=== PATIENT | female | born 1955 | race Caucasian/White ===

== ENCOUNTER → 2021-07-30 | Outpatient (CLI) | payer MEDICARE ==
--- NOTE | 2021-07-30 15:06 | US ---
EXAMINATION TYPE: US carotid duplex BILAT DATE OF EXAM: 07/30/2021 COMPARISON: NONE CLINICAL HISTORY: I65.23 OCCLUSION AND STENOSIS OF BILATERAL. dizziness EXAM MEASUREMENTS: RIGHT: Peak Systolic Velocity (PSV) cm/sec ----- Right CCA: 107 ----- Right ICA: 114 ----- Right ECA: 147 ICA/CCA ratio: 1.07 RIGHT: End Diastole cm/sec ----- Right CCA: 26.5 ----- Right ICA: 34.0 ----- Right ECA: 18.4 LEFT: Peak Systolic Velocity (PSV) cm/sec ----- Left CCA: 126 ----- Left ICA: 130 ----- Left ECA: 165 ICA/CCA ratio: 1.03 LEFT: End Diastole cm/sec ----- Left CCA: 29.9 ----- Left ICA: 46.9 ----- Left ECA: 18.9 VERTEBRALS (direction of flow): Right Vertebral: Antegrade Left Vertebral: Antegrade Rhythm: Normal mild plaque bilateral bifurcations. slightly increased velocities bilateral ECA's IMPRESSION: No evidence for hemodynamically significant stenosis. Criteria for Assigning % of Stenosis / Diameter reduction (Estimation based on the indirect measurements of the internal carotid artery velocities (ICA PSV). 1. Normal (no stenosis)=ICA PSV < 125 cm/s: ratio < 2.0: ICA EDV<40 cm/s. 2. Less than 50% stenosis=ICA PSV < 125 cm/s: ratio < 2.0: ICA EDV<40 cm/s. 3. 50 to 69% stenosis=ICA PSV of 125 to 230 cm/s: ration 2.0 ? 4.0: ICA EDV 40-100 cm/s. 4. Greater than 70% stenosis to near occlusion= ICA PSV > 230 cm/s: ratio > 4.0: ICA EDV > 100 cm/s. 5. Near occlusion= ICA PSV velocities may be low or undetectable: variable ratio and ICA EDV. 6. Total occlusion=unable to detect flow.
== END | disposition home or self-care (01) ==
LOC: RADUSWWP 13:31
PROVIDERS: ATTEND Internal Medicine
DX: I65.23 Occlusion and stenosis of bilateral carotid arteries (principal)
CPT/HCPCS: 93880

== ENCOUNTER → 2021-10-19 | Outpatient (CLI) | payer MEDICARE ==
--- NOTE | 2021-10-19 12:21 | CTL ---
EXAMINATION TYPE: CT Low Dose Lung DATE OF EXAM ORDERED: 10/19/2021 HISTORY: Personal tobacco use. Lung cancer screening CT DLP: 83.[address] CTDI: 2.3 mGy Automated exposure control for dose reduction was used. SCREENING VISIT: Initial COMPARISON: None TECHNIQUE: Low dose computed tomography scan was performed through the chest at 1 mm thick sections a nd reconstructed images in the coronal plane at [address] DIAGNOSTIC QUALITY: Satisfactory FINDINGS: LUNG NODULES: None. LUNGS: COPD: Severity: None Fibrosis: Severity: None Lymph nodes: None Other findings: None RIGHT PLEURAL SPACE: Effusion: None Calcification: None Thickening: None Pneumothorax: None LEFT PLEURAL SPACE: Effusion: None Calcification: None Thickening: None Pneumothorax: None HEART: Heart Size: Normal Coronary calcification: None Pericardial effusion: None OTHER FINDINGS: Upper abdomen: Normal gallbladder surgically absent. Bony thorax: Normal. Note is made of a left breast prosthesis. Supraclavicular region: Normal Other: Ascending thoracic aorta at the level the main pulmonary artery measures 2.8 cm. The main pul monary artery at the bifurcation measures 2.3 cm. IMPRESSION: No suspicious abnormalities to suggest primary or metastatic disease. FOLLOW UP CT CHEST RECOMMENDATION: Low-dose CT chest [address] LUNG RAD: Lung-Rad 2 Benign Appearance or Behavior
== END | disposition home or self-care (01) ==
LOC: RADCTMAIN 09:45
PROVIDERS: ATTEND Internal Medicine
DX: Z12.2 Encounter for screening for malignant neoplasm of respiratory organs (principal); Z87.891 Personal history of nicotine dependence
CPT/HCPCS: 71271

== ENCOUNTER → 2023-12-07 | Outpatient (CLI) | payer MEDICARE ==
--- NOTE | 2023-12-07 10:16 | XR ---
EXAMINATION TYPE: XR cervical spine w flex/ext DATE OF EXAM: 12/07/2023 COMPARISON: NONE HISTORY: 68-year-old female M47.812 cervical SPINE W FLEX/EXT TECHNIQUE: 8 views FINDINGS: No predental space widening or prevertebral soft tissue swelling. Moderate uncovertebral joint arthropathy mid to lower cervical spine. Scattered [id number] face t arthropathy throughout. On the left, there is mild bony neuroforaminal narrowing at C5-C6. On the right, no significant bony or foraminal narrowing is seen. Mild degenerative endplate spondylosis lower cervical spine. No malalignment or dynamic subluxation seen on flexion-extension. IMPRESSION: 1. Scattered moderate uncovertebral joint arthropathy and mild to moderate facet arthropathy. 2. Mild bony neuroforaminal narrowing on the left at C5-C6. 3. No spondylolisthesis or dynamic subluxation on flexion-extension. [facility], , 12/07/2023 10:14 AM
== END | disposition home or self-care (01) ==
LOC: RADXRMAIN 09:16
PROVIDERS: ATTEND Internal Medicine
CPT/HCPCS: 72052

== ENCOUNTER → 2023-12-11 | Outpatient (CLI) | payer MEDICARE ==
--- NOTE | 2023-12-11 17:09 | CTL ---
EXAMINATION TYPE: CT Low Dose Lung DATE OF EXAM: 12/11/2023 9:52 AM CLINICAL INDICATION: Female, 68 years old with history of Z12.2 LUNG CA SCREEN F17.210 CURRENT SMOKER ; Personal hx tobacco use, current smoker, 1 ppd x 45 years, history of tobacco use. COMPARISON: 08/02/2021.. TECHNIQUE: Multiple axial non-contrast scans were obtained from approximately the lung apices through the upper abdomen. Coronal and sagittal reformatted images were obtained. Low dose technique was uti lized. MIP were created on a separate workstation and submitted for review. CT DLP: 24 mGycm, Automated exposure control for dose reduction was used. CT Contrast: Contrast used: None Oral contrast used: None FINDINGS: Lack of intravenous contrast and low dose technique limits the evaluation of the vascular and soft ti ssue structures. LUNGS: No evidence of pulmonary fibrosis. No evidence of focal consolidation, pneumothorax or pleural effusion. Centrilobular emphysema changes. Streaky atelectasis in the lung bases. Nodules: RUL: None. RML: None. RLL: None. YURY: None. LLL: None. AIRWAY: Patent and unremarkable. HEART: Size within normal limits. MEDIASTINUM: No gross evidence of adenopathy. VASCULATURE: No aortic aneurysm. MUSCULOSKELETAL: No acute osseous abnormalities SOFT TISSUES/LYMPH NODES: Left breast implant appears intact. LOWER NECK: No significant findings. UPPER ABDOMEN: No significant findings. The gallbladder may be surgically absent. IMPRESSION: 1. No clinically significant pulmonary nodules. 2. Mild emphysema. CT LUNG RAD AND CT CHEST RECOMMENDATION: Lung-Rad 2 Benign Appearance or Behavior: Continue annual sc reening with LDCT in 12 months. S Modifier (other clinically significant findings): None Recommend smoking cessation (if current smoker), or continuation of smoking cessation (if prior smoke r). Annual screening for lung cancer with low-dose computed tomography is recommended in adults ages 55 to 77 years who have a 30 pack-year smoking history and currently smoke or have quit within the pa st 15 years. Screening should be discontinued once a person has not smoked for 15 years or develops a health problem that substantially limits life expectancy or the ability or willingness to have curat cherie lung surgery. Lung rads 2021 [email or web address] [facility], , 12/11/2023 5:06 PM
== END | disposition home or self-care (01) ==
LOC: RADCTMAIN 09:13
PROVIDERS: ATTEND Internal Medicine Critical Care Medicine
CPT/HCPCS: 71271